=== PATIENT | female | born 1960 | race Caucasian/White ===

== ENCOUNTER 2020-07-25 07:46 | Day surgery (SDC) | payer BC, SELFPAY ==
[2020-07-19 14:02] VITALS: BMI 60.3
[2020-07-25 08:40] VITALS: BP 152/71; PULSE 59; RESP 18; TEMP 36.3; O2SAT 96
[2020-07-25 08:50] LABS: POC Glucose,Bedside 99 (70-110)
--- NOTE | 2020-07-25 08:51 | P.PN_ITS ---
[facility] Anesthesia Checklist - Structural Data Admitted From: Home Planned Operative Procedure/s: egd Consent for Planned Operative Procedure(s) Verified: Yes - Additional verifications Anesthesia Reactions: No - Airway Assessment C-Spine Mobility Assessed: Yes TMJ Mobility Assessed: Yes Dentition: Good Dentition - Neurological Assessment Level of Consciousness: Awake, Alert, Appropriate - Anesthesia Plan Anesthesia Risk discussed: Yes Anesthesia Plan: Verified ASA Class: III Anesthesia Type: MAC [facility] History I have reviewed the patient's past medical history: Yes Medical History: Reports:: Deep Vein Thrombosis (2 DVT, hand amutation), Depression, Diabetes Mellitus Type 2, Gastroesophageal Reflux Disease(GERD), Hyperlipidemia, Hypertension Denies:: Cancer, Diabetes Mellitus Type 1, Internal Pacemaker, Lung Disease, MRSA, Seizures *Have you ever received a pneumonia vaccine?: No *Have you received a flu vaccine this season?: No Other Medical History: Reports: Other (Super morbid obesity, gout) Anesthesia experience/problems:: none Laterality Cases: Left: Other Other Surgeries: Yes: Hysterectomy-Partial, Tubal Ligation. No: Pacemaker Amputation: Yes (Left arm) Fractures: No - *Social History Last grade of school completed: Some college Smoking Status: Never smoker Alcohol Intake: never Substance Use Type: denies use *Occupational Status:: employed Housing: house Household Members: spouse *Travel in the last 8 weeks: None - Psychiatric History Pschychiatric History:: Reports:: Depression Family Hx:: Hypertension
[2020-07-25 08:54] LABS: Coronavirus 19 IgG Antibody Positive (Negative); Coronavirus 19 IgM Antibody Negative (Negative)
--- NOTE | 2020-07-25 09:19 | HMH.PROC ---
[facility] Procedure Note Procedure Note:: Upper Endoscopy Procedure Report: Esophagogastroduodenoscopy with cold biopsies and TTS balloon dilation Endoscopost: Philippe Hernandez II, MD Referring Physician: MOHINDER Azevedo Date of Procedure: July 25, 2020 Equipment: Olympus GIF 180 standard upper endoscope Sedation: MAC sedation Indications: Mrs. Prescott is a 59-year-old female with lower retrosternal chest pain, choking and strangling. She has moderate belching. She has some painful swallowing, mild dysphagia and esophageal chest pain. This can even occur with liquids and she will have some regurgitation. She reports no globus sensation. She has had a moderate amount of stress. She has had chronic GERD and has been on omeprazole (Prilosec) for a long period of time. Recently, she has had more heartburn. She reports some bloating. She formerly had IBS?D but more recently has had constipation. She reports no nausea but does have some early satiety. She did have a colonoscopy with la in July 2019 and had 4 diminutive polyps, left-sided diverticulosis and internal hemorrhoids that were band ligated. She did have an EGD with la in October 2018 and did have some cricopharyngeal spasm and reactive gastropathy. Procedure: Prior to the procedure, a history and physical exam was performed, and patient's medications and allergies were reviewed. The risks, benefits and alternatives of the sedation and procedure were discussed with the patient. All questions were answered and informed consent was obtained. The patient was brought to the procedure room. Patient identification and proposed procedure were verified by the physician and the nurse. The patient was placed in a left lateral decubitus position and the scope was passed under direct vision. Throughout the procedure, the patient's blood pressure, pulse, and oxygen saturations were monitored continuously. The upper GI endoscopy was accomplished without difficulty. The patient tolerated the procedure well. Findings: The scope was passed directly into the upper esophagus and advanced to the third portion of the duodenum. The post bulbar duodenum and duodenal bulb were normal with normal mucosa and conniventes. The scope was withdrawn through a normal duodenal bulb and pylorus into the stomach. There was moderate linear reactive gastropathy of the antrum and body with bile reflux. The remainder of the antrum, body and fundus of the stomach were grossly normal. Upon retroflexion there was a very small 1 to 2 cm sliding hiatal hernia. 2 biopsies were taken in the antrum and along the lesser curvature for histology to rule out gastritis and/or H pylori. The scope was then withdrawn into the esophagus. There was a serrated Z-line and biopsies were taken at the GE junction. There were strong tertiary contractions and evidence of moderate esophageal dysmotility. The entire esophagus was dilated to 60 Georgian/20 mm with a TTS hydrostatic balloon. There was some resistance at the cricopharyngeus. The remainder of the esophageal mucosa was normal. Impression: 1. Nonerosive GERD with moderate esophageal dysmotility and very small sliding hiatal hernia 2. Cricopharyngeal spasm status post dilation to 20 mm 3. Bile reflux with linear reactive gastropathy Plan: I will follow-up the biopsies. The patient does have functional GERD with esophageal dyskinesia. We will again discuss treatment options. I would consider promotility therapy and treatment for visceral sensitivity. She does have chronic functional intestinal disorder with IBS and presently is having more constipation.
[2020-07-25 09:25] VITALS: BP 149/89; PULSE 59; RESP 18; TEMP 36.3; O2SAT 92
[2020-07-25 09:29] VITALS: O2SAT 97
[2020-07-25 09:35] VITALS: BP 161/84; PULSE 54; RESP 18; O2SAT 97
[2020-07-25 09:45] VITALS: BP 172/86; PULSE 51; RESP 18; O2SAT 97
[2020-07-25 09:57] LABS: POC Glucose,Bedside 93 (70-110)
[2020-07-25 10:00] VITALS: BP 177/78; PULSE 54; RESP 18; O2SAT 96
== END 2020-07-25 10:15 | disposition home or self-care (01) ==
PROVIDERS: PCP Nurse Practitioner Family; Visit Provider Internal Medicine Gastroenterology
PROC: 0DJ08ZZ Inspection of Upper Intestinal Tract, Via Natural or Artificial Opening Endoscopic (ICD-10-PCS; CPT 43235; principal; 2020-07-25 09:00)
DX: K21.9 Gastro-esophageal reflux disease without esophagitis; Z87.19 Personal history of other diseases of the digestive system; K22.4 Dyskinesia of esophagus; K44.9 Diaphragmatic hernia without obstruction or gangrene; J39.2 Other diseases of pharynx; K31.9 Disease of stomach and duodenum, unspecified; K58.2 Mixed irritable bowel syndrome; Z86.718 Personal history of other venous thrombosis and embolism; E11.9 Type 2 diabetes mellitus without complications; I10 Essential (primary) hypertension; E78.5 Hyperlipidemia, unspecified; E66.01 Morbid (severe) obesity due to excess calories; Z68.44 Body mass index [BMI] 60.0-69.9, adult
CPT/HCPCS: 43239; 43249; 36415; 82962; 86328; C1726